=== PATIENT | male | born 1965 | race African-American/Black ===

== ENCOUNTER 2023-08-01 10:30 | Inpatient (IN) | payer OTHER ==
[2023-08-01] VITALS (35 sets, daily range): BP systolic 86–148; BP diastolic 53–83; PULSE 74–91; RESP 13–31; TEMP 96.7–99
[~2023-08-01] VITALS: Ht 172.7 cm; Wt 80.3 kg
[2023-08-01] MEDS ORDERED: FLUMAZENIL 0.1 MG/ML 5ML VIAL IV ONE ×2 (10:43→10:45)
[2023-08-01] MEDS ORDERED: SODIUM CHLORIDE 0.9% 1000ML BAG (SEPSIS BOLUS) IV ONE (10:45)
[2023-08-01] MEDS ORDERED: AMIODARONE HCL 50MG/ML 3ML VIAL IV ONE (10:45)
[2023-08-01] MEDS ORDERED: NOREPINEPHRINE 8MG/250ML PMX 250 ML IV STA (10:47)
[2023-08-01 12:09] LABS: PROTHROMBIN TIME 10.8 sec (9.6-11.0)
[2023-08-01 12:13] LABS: BASOPHILS % 0.2 % (0.0-2.0); EOSINOPHILS % 0.5 % (0.0-5.0); HEMATOCRIT. 40.9 % (42.0-52.0); HEMOGLOBIN. 14.1 g/dL (14.0-18.0); LYMPHOCYTES % 16.2 % (20.0-50.0); MEAN CORPUSCULAR HEMOGLOBIN 30.1 pg (28.0-32.0); MEAN CORPUSCULAR HGB CONC 34.5 g/dL (31.0-37.0); MEAN CORPUSCULAR VOLUME 87.4 fL (80.0-94.0); MONOCYTES % 7.8 % (2.0-8.0); NEUTROPHILS % 75.3 % (40.0-76.0); PLATELET 247 x1000/uL (130-400); RED BLOOD CELL COUNT 4.68 mill/uL (4.7-6.1); RED CELL DISTRIBUTION WIDTH 14.2 % (11.6-14.6); WHITE BLOOD COUNT 11.8 x1000/uL (4.5-11.0)
[2023-08-01 12:31] LABS: ALANINE AMINOTRANSFERASE 54 IU/L (10-49); ALBUMIN 3.2 g/dL (3.2-4.8); ASPARTATE AMINOTRANSFERASE 30 IU/L (<34); BILIRUBIN TOTAL 0.7 mg/dL (0.1-1.0); CALCIUM 7.5 mg/dL (8.7-10.4); CARBON DIOXIDE 17 mEq/L (21-32); CHLORIDE 96 mEq/L (98-107); CREATININE 2.4 mg/dL (0.6-1.3); GLUCOSE 101 mg/dL (70-105); POTASSIUM 3.1 mEq/L (3.5-5.1); PROTEIN TOTAL 5.5 g/dL (6.0-8.3); SODIUM 126 mEq/L (136-145); TROPONIN I HIGH SENSITIVITY 21 ng/L (3.0-53); UREA NITROGEN BLOOD 43 mg/dL (9-23)
[2023-08-01] MEDS ORDERED: POTASSIUM CHLORIDE 20MEQ/PACKET PO ONE (12:45)
[2023-08-01 12:58] LABS: CLARITY URINE CLEAR (CLEAR); COLOR URINE YELLOW (YELLOW); GLUCOSE URINE NEGATIVE (NEGATIVE); KETONES URINE NEGATIVE (NEGATIVE); LEUKOCYTE ESTERASE URINE NEGATIVE (NEGATIVE); NITRITE URINE NEGATIVE (NEGATIVE); OCCULT BLOOD URINE NEGATIVE (NEGATIVE); PROTEIN URINE NEGATIVE (NEGATIVE); SPECIFIC GRAVITY URINE 1.006 (1.005-1.030); UROBILINOGEN URINE 0.2 E.U./dL (0.2-1.0)
[2023-08-01] MEDS ORDERED: IPRATROPIUM/ALBUTEROL 0.5-3(2.5)MG/3ML NEB HHN PRN (16:15)
[2023-08-01] MEDS ORDERED: LISI40TA13 MT (16:29)
[2023-08-01] MEDS ORDERED: SERT-422 MT (16:29)
[2023-08-01] MEDS ORDERED: ROSU20TA2 MT (16:29)
[2023-08-01] MEDS: AMIODARONE HCL 200 MG TABLET PO SCH ×2 (17:00→17:54)
[2023-08-01] MEDS: PANTOPRAZOLE SODIUM 40 MG/VIAL IV SCH (17:53)
[2023-08-01] MEDS: SODIUM CHLORIDE 0.9% 1,000 ML IV SCH (17:53)
[2023-08-01] MEDS ORDERED: PNEUMOCOCCAL 23-VAL P-SAC VAC 0.5 ML IM ONE (19:00)
[2023-08-01] MEDS ORDERED: INFLUENZA VACCINE 05/PF 0.5 ML SYRINGE IM ONE (19:00)
[2023-08-01] MEDS ORDERED: NOREPINEPHRINE 8MG/250ML PMX 250 ML IV PRN (19:00)
[2023-08-01] MEDS: ENOXAPARIN 40MG/0.4ML SYR SUBCUT SCH (21:34)
[2023-08-01 21:43] LABS: TROPONIN I HIGH SENSITIVITY 17 ng/L (3.0-53)
[2023-08-02] VITALS (90 sets, daily range): BP systolic 84–150; BP diastolic 42–123; PULSE 61–93; RESP 8–26; TEMP 97.3–99.5
[2023-08-02 05:27] LABS: BASOPHILS % 0.4 % (0.0-2.0); EOSINOPHILS % 1.2 % (0.0-5.0); HEMATOCRIT. 39.6 % (42.0-52.0); HEMOGLOBIN. 13.5 g/dL (14.0-18.0); LYMPHOCYTES % 30.4 % (20.0-50.0); MEAN CORPUSCULAR HEMOGLOBIN 30.7 pg (28.0-32.0); MEAN CORPUSCULAR HGB CONC 34.1 g/dL (31.0-37.0); MEAN CORPUSCULAR VOLUME 89.9 fL (80.0-94.0); MEAN PLATELET VOLUME 7.9 fl (7.4-10.4); PLATELET 251 x1000/uL (130-400); RED CELL DISTRIBUTION WIDTH 14.4 % (11.6-14.6); WHITE BLOOD COUNT 8.9 x1000/uL (4.5-11.0)
[2023-08-02 05:36] LABS: TROPONIN I HIGH SENSITIVITY 13 ng/L (3.0-53)
[2023-08-02 05:41] LABS: CALCIUM 7.9 mg/dL (8.7-10.4); CARBON DIOXIDE 19 mEq/L (21-32); CHLORIDE 106 mEq/L (98-107); CHOLESTEROL 126 mg/dL (<200); CREATININE 1.1 mg/dL (0.6-1.3); GLUCOSE 89 mg/dL (70-105); HDL CHOLESTEROL 36 mg/dL (>55); LDL CHOLESTEROL 35 mg/dL (5-100); POTASSIUM 3.5 mEq/L (3.5-5.1); SODIUM 137 mEq/L (136-145); TRIGLYCERIDE 410 mg/dL (0-150); UREA NITROGEN BLOOD 19 mg/dL (9-23)
[2023-08-02] MEDS: SODIUM CHLORIDE 0.9% 1,000 ML IV SCH (06:05)
[2023-08-02] MEDS: SODIUM CHLORIDE 0.45% 1,000 ML IV SCH ×2 (08:28→21:17)
[2023-08-02] MEDS: PANTOPRAZOLE SODIUM 40 MG/VIAL IV SCH (08:29)
[2023-08-02] MEDS: AMIODARONE HCL 200 MG TABLET PO SCH ×3 (08:29→17:40)
[2023-08-02 10:39] LABS: BG BASE EXCESS -2.7 mmol/L (-2.0-2.0); BG CARBOXYHEMOGLOBIN 0.3 % (0.5-1.5); BG DEOXYHEMOGLOBIN 1.5 % (0.0-5.0); BG FRACTION INSPIRED OXYGEN 21; BG HCO3 ACT 20.7 mmol/L (22.0-26.0); BG METHEMOGLOBIN 0.1 % (0.0-1.5); BG OXYGEN SATURATION 98.5 % (92.0-98.5); BG OXYHEMOGLOBIN 98.1 % (94.0-97.0); BG PCO2 32.3 mmHg (35.0-45.0); BG PH 7.424 (7.350-7.450); BG PO2 130.9 mmHg (75.0-100.0); BG SAMPLE SITE RIGHT RADIAL; BG VENT MODE ROOM AIR
[2023-08-02 12:29] LABS: CREATINE KINASE 129 IU/L (46-171)
[2023-08-02 20:29] LABS: TROPONIN I HIGH SENSITIVITY 9 ng/L (3.0-53)
[2023-08-02] MEDS: ENOXAPARIN 40MG/0.4ML SYR SUBCUT SCH (21:17)
[2023-08-03] VITALS (25 sets, daily range): BP systolic 86–140; BP diastolic 48–91; PULSE 66–85; RESP 11–29; TEMP 96.6–98.9
[2023-08-03 07:56] LABS: BASOPHILS % 0.3 % (0.0-2.0); EOSINOPHILS % 2.7 % (0.0-5.0); HEMATOCRIT. 42.7 % (42.0-52.0); HEMOGLOBIN. 14.9 g/dL (14.0-18.0); LYMPHOCYTES % 28.9 % (20.0-50.0); MEAN CORPUSCULAR HGB CONC 34.8 g/dL (31.0-37.0); MEAN PLATELET VOLUME 8.5 fl (7.4-10.4); MONOCYTES % 7.6 % (2.0-8.0); NEUTROPHILS % 60.5 % (40.0-76.0); PLATELET 200 x1000/uL (130-400); RED CELL DISTRIBUTION WIDTH 14.5 % (11.6-14.6); WHITE BLOOD COUNT 6.4 x1000/uL (4.5-11.0)
[2023-08-03 08:55] LABS: CALCIUM 8.3 mg/dL (8.7-10.4); CARBON DIOXIDE 23 mEq/L (21-32); CHLORIDE 104 mEq/L (98-107); CREATININE 0.9 mg/dL (0.6-1.3); GLUCOSE 76 mg/dL (70-105); PHOSPHORUS 1.8 mg/dL (2.5-4.9); POTASSIUM 3.6 mEq/L (3.5-5.1); SODIUM 137 mEq/L (136-145); UREA NITROGEN BLOOD 12 mg/dL (9-23)
[2023-08-03] MEDS: AMIODARONE HCL 200 MG TABLET PO SCH ×3 (09:20→17:18)
[2023-08-03] MEDS: PANTOPRAZOLE SODIUM 40 MG/VIAL IV SCH (09:20)
[2023-08-03 09:50] LABS: COMPLEMENT C3 112 mg/dL (82-167); COMPLEMENT C4 29 mg/dL (12-38)
[2023-08-03] MEDS: SODIUM CHLORIDE 0.45% 1,000 ML IV SCH (09:55)
[2023-08-03] MEDS ORDERED: POTASSIUM PHOS,M-BASIC-D-BASIC 15 MMOL in DEXT 5% WATER 245 ML IV NR (12:00)
[2023-08-03 13:11] LABS: ANTI-NUCLEAR ANTIBODIES DIRECT Negative (Negative)
[2023-08-03] MEDS: ENOXAPARIN 40MG/0.4ML SYR SUBCUT SCH (21:17)
[2023-08-04] VITALS: BP 103/80; PULSE 76; RESP 20; TEMP 98.2
[2023-08-04 04:00] VITALS: BP 157/92; PULSE 73; RESP 20; TEMP 97.3
[2023-08-04 06:52] LABS: CALCIUM 8.8 mg/dL (8.7-10.4); CARBON DIOXIDE 21 mEq/L (21-32); CHLORIDE 106 mEq/L (98-107); CREATININE 0.9 mg/dL (0.6-1.3); GLUCOSE 99 mg/dL (70-105); PHOSPHORUS 2.6 mg/dL (2.5-4.9); POTASSIUM 4.3 mEq/L (3.5-5.1); SODIUM 138 mEq/L (136-145); UREA NITROGEN BLOOD 10 mg/dL (9-23)
[2023-08-04 08:00] VITALS: BP 137/75; PULSE 68; RESP 19; TEMP 97.7
[2023-08-04] MEDS: PANTOPRAZOLE SODIUM 40 MG/VIAL IV SCH (08:41)
[2023-08-04] MEDS: AMIODARONE HCL 200 MG TABLET PO SCH ×2 (08:41→13:03)
[2023-08-04 12:00] VITALS: BP 129/71; PULSE 68; RESP 20; TEMP 97.7
[2023-08-04] MEDS ORDERED: AMI2 PO (14:20)
[2023-08-04 14:34] VITALS: BP 129/71; PULSE 68; TEMP 97.7; O2SAT 96
[2023-08-05] MEDS ORDERED: FAMOTIDINE 20MG/2ML VIAL IV SCH (09:00)
== END 2023-08-04 15:35 | disposition home or self-care (01) | DRG 308 ==
LOC: ER 10:53 → MICUSO 12:51 → EDBEDREQTM 12:57 → EDBEDREQ 12:57 → CVICU 15:00 → 5WST 08-03 15:21
PROVIDERS: ADMIT Internal Medicine; ATTEND Internal Medicine
PROC: 5A2204Z Restoration of Cardiac Rhythm, Single (ICD-10-PCS; principal; 2023-08-01)
PROC: 06HY33Z Insertion of Infusion Device into Lower Vein, Percutaneous Approach (ICD-10-PCS; 2023-08-01)
PROC: B54BZZA Ultrasonography of Right Lower Extremity Veins, Guidance (ICD-10-PCS; 2023-08-01)
DX: I47.10 Supraventricular tachycardia, unspecified (principal); G93.41 Metabolic encephalopathy; R57.0 Cardiogenic shock; N17.0 Acute kidney failure with tubular necrosis; E87.1 Hypo-osmolality and hyponatremia; E87.20 Acidosis, unspecified; F32.A Depression, unspecified; D72.829 Elevated white blood cell count, unspecified; E11.9 Type 2 diabetes mellitus without complications; E78.00 Pure hypercholesterolemia, unspecified; E83.39 Other disorders of phosphorus metabolism; E86.9 Volume depletion, unspecified; F10.10 Alcohol abuse, uncomplicated; E87.6 Hypokalemia; I10 Essential (primary) hypertension; Z79.899 Other long term (current) drug therapy; Z87.11 Personal history of peptic ulcer disease; Z87.891 Personal history of nicotine dependence
CPT/HCPCS: 36415; 36600; 71045; 76770; 80048; 80053; 80061; 81003; 82375; 82550; 82805; 83605; 83735; 84100; 84145; 84443; 84484; 85025; 85379; 86038; 86160; 90686; 90732; 93005; 93306; 93880; 99291; C9113; J1650; J3490; J7030; J7060